=== PATIENT | male | born 1975 | race Caucasian/White ===

== ENCOUNTER 2017-03-27 18:41 | Emergency (ER) | payer OTHER ==
[~2017-03-27] VITALS: Ht 167.6 cm; Wt 59.0 kg
[~2017-03-27 18:41] MED LIST: ASPIRIN81 MG PO; COREG3.125 MG PO; LASIX20 MG PO; LIPITOR20 MG PO; LIPITOR80 MG PO; LISINOPRIL5 MG PO; NICOTINE TRANSD21 MG EXT; NITROGLYGERIN0.4 MG SL; NO MEDICATIONS; PLAVIX PO
== END 2017-03-27 20:42 | disposition home or self-care (01) ==
LOC: CED 18:41
DX: T63.461A Toxic effect of venom of wasps, accidental (unintentional), initial encounter (principal); I10 Essential (primary) hypertension; Z79.899 Other long term (current) drug therapy; Z87.891 Personal history of nicotine dependence
CPT/HCPCS: 96374; 99283; J2930